=== PATIENT | male | born 2005 | race Caucasian/White ===

== ENCOUNTER 2024-03-16 08:34 | Emergency (ER) | payer OTHER ==
[~2024-03-16] VITALS: Ht 182.9 cm; Wt 84.6 kg
[2024-03-16 09:04] LABS: BASO % 0.4 % (0.0-1.0); EOS % 0.6 % (0.0-3.0); HEMATOCRIT 45.9 % (42.0-52.0); HEMOGLOBIN 15.6 g/dl (13.5-17.5); LYMPH # 2.3 10^3/uL (1.5-5.0); MEAN CORPUSCULAR HEMOGLOBIN 30.3 pg (27.0-33.0); MEAN CORPUSCULAR VOLUME 89.1 fl (80.0-96.0); MONO # 0.6 10^3/uL (0.0-0.8); MONO % 8.1 % (2.0-8.0); NEUTROPHILS # 4.2 10^3/uL (1.5-8.5); NEUTROPHILS % 57.9 % (36.0-66.0); PLATELET COUNT, AUTOMATED 179 10^3/uL (150-450); RED BLOOD COUNT 5.15 10^6/uL (4.30-6.10); WHITE BLOOD COUNT 7.3 10^3/uL (4.0-10.0)
[2024-03-16 09:30] LABS: LIPASE 28 U/L (12-53)
[2024-03-16 09:37] LABS: ALBUMIN 4.4 G/DL (3.2-5.2); ALKALINE PHOSPHATASE 78 U/L (46-116); ALT/SGPT 28 U/L (7.0-40); BILIRUBIN,DIRECT 0.2 MG/DL (<0.4); BILIRUBIN,TOTAL 0.7 MG/DL (0.3-1.2); BLOOD UREA NITROGEN 16 MG/DL (9-23); CARBON DIOXIDE LEVEL 28 MMOL/L (20-31); CHLORIDE LEVEL 105 MMOL/L (98-107); GLUCOSE, FASTING 77 MG/DL (60-100); POTASSIUM SERUM 3.8 MMOL/L (3.5-5.1); SODIUM LEVEL 141 MMOL/L (136-145); TOTAL PROTEIN 7.5 G/DL (5.7-8.2)
[2024-03-16 10:02] LABS: AST/SGOT 22 U/L (<34); CALCIUM LEVEL 9.4 MG/DL (8.5-10.1)
[2024-03-16] MEDS: NS 1,000 ML IV ONE (10:17)
[2024-03-16] MEDS ORDERED: ISOVUE-370 76% 100ML VIAL As Ordered ONE (10:20)
[2024-03-16 11:42] VITALS: BP 116/55; TEMP 98.5; O2SAT 98
== END 2024-03-16 11:53 | disposition home or self-care (01) ==
LOC: M ED 08:34
DX: R10.9 Unspecified abdominal pain (principal); Z88.0 Allergy status to penicillin
CPT/HCPCS: 74177; 80048; 80076; 83690; 85025; 96360; 99284; Q9967

== ENCOUNTER 2024-06-25 16:57 | Emergency (ER) | payer OTHER ==
[~2024-06-25] VITALS: Ht 182.9 cm; Wt 81.3 kg
[2024-06-25 17:06] VITALS: BP 152/88; TEMP 97.8; O2SAT 100
== END 2024-06-25 18:37 | disposition left against medical advice (07) ==
LOC: M ED 16:57
DX: Z53.21 Procedure and treatment not carried out due to patient leaving prior to being seen by health care provider (principal)

== ENCOUNTER 2024-06-27 13:55 | Emergency (ER) | payer OTHER ==
[~2024-06-27] VITALS: Ht 182.9 cm; Wt 81.8 kg
[2024-06-27 13:59] VITALS: BP 142/80; TEMP 97.9; O2SAT 98
== END 2024-06-27 16:54 | disposition left against medical advice (07) ==
LOC: M ED 13:55
DX: M79.651 Pain in right thigh (principal); R20.2 Paresthesia of skin; Z88.0 Allergy status to penicillin; Z53.9 Procedure and treatment not carried out, unspecified reason

== ENCOUNTER 2025-03-28 20:07 | Emergency (ER) | payer OTHER ==
[~2025-03-28] VITALS: Ht 182.9 cm; Wt 78.6 kg
[2025-03-28] MEDS ORDERED: EXPOSURE KIT-ADULT 7 DAY SUPPLY PO ONE (20:35)
[2025-03-28 20:54] LABS: BASO # 0.1 10^3/uL (0.0-0.2); BASO % 0.5 % (0.0-1.0); EOS # 0.2 10^3/uL (0.0-0.5); EOS % 1.5 % (0.0-3.0); LYMPH # 3.3 10^3/uL (1.5-5.0); LYMPH % 31.9 % (24.0-44.0); MONO # 0.8 10^3/uL (0.0-0.8); MONO % 7.9 % (2.0-8.0); NEUTROPHILS # 6.0 10^3/uL (1.5-8.5); NEUTROPHILS % 58.0 % (36.0-66.0); PLATELET COUNT, AUTOMATED 246 10^3/uL (150-450)
[2025-03-28] MEDS: RALTEGRAVIR 400 MG TAB PO ONE (20:59)
[2025-03-28 21:19] LABS: ALT/SGPT 54 U/L (7.0-40); AST/SGOT 46 U/L (<34); CALCIUM LEVEL 9.4 MG/DL (8.5-10.1); CARBON DIOXIDE LEVEL 28 MMOL/L (20-31); CHLORIDE LEVEL 102 MMOL/L (98-107); CREATININE FOR GFR 0.96 MG/DL (0.70-1.30); GLOMERULAR FILTRATION RATE > 90.0 (>60); POTASSIUM SERUM 4.4 MMOL/L (3.5-5.1); SODIUM LEVEL 143 MMOL/L (136-145)
[2025-03-28] MEDS ORDERED: RALT40TA PO (21:20)
[2025-03-28] MEDS ORDERED: EMTR1TAB16 PO (21:20)
[2025-03-28 21:22] LABS: HEPATITIS B SURFACE ANTIBODY POSITIVE (POSITIVE)
[2025-03-28 21:48] LABS: HIV 1&2 SCREEN NEGATIVE (NEGATIVE)
[2025-03-28 21:53] VITALS: BP 148/99; TEMP 96.8; O2SAT 98
[2025-03-28 21:56] LABS: HEPATITIS C VIRUS ABY INDEX < 0.02 INDEX (<0.8)
[2025-03-29] MEDS ORDERED: RALTEGRAVIR 400 MG TAB PO SCH
== END 2025-03-28 21:56 | disposition home or self-care (01) ==
LOC: M ED 20:07
DX: Z77.21 Contact with and (suspected) exposure to potentially hazardous body fluids (principal); W46.0XXA Contact with hypodermic needle, initial encounter; Z88.0 Allergy status to penicillin; Z79.899 Other long term (current) drug therapy